=== PATIENT | female | born 1965 | race Caucasian/White ===

== ENCOUNTER → 2016-12-05 | Outpatient (CLI) | payer OTHER | LOC: FIMAGING 07:41 | PROVIDERS: ATTEND Internal Medicine | DX: Z12.31 Encounter for screening mammogram for malignant neoplasm of breast (principal) | CPT/HCPCS: G0202 ==

== ENCOUNTER → 2017-09-28 | Outpatient (CLI) | payer OTHER | LOC: BMCIMAGING 09:17 | PROVIDERS: ATTEND Nurse Practitioner Adult Health | DX: J40 Bronchitis, not specified as acute or chronic (principal) ==

== ENCOUNTER 2017-11-24 16:45 | Emergency (ER) | payer OTHER ==
--- NOTE | 2017-11-24 17:12 | EDPHY ---
H & P Time Seen by Provider: 11/24/17 16:57 HPI/ROS: CHIEF COMPLAINT: Head injury HISTORY OF PRESENT ILLNESS: 52-year-old female presents to the emergency department by private vehicle with head injury. The patient was at a place of business and a large wooden structure fell and hit the top of her head. The incident happened just prior to arrival. She did not lose consciousness. She complains of pain at the site of where she hit. She is also complaining of some neck stiffness. She denies paresthesias in her upper or lower extremities. Denies back pain. Denies chest pain or difficulty breathing. Denies abdominal pain. No vomiting. No visual changes. REVIEW OF SYSTEMS: Constitutional: No fever, no chills. Eyes: No double or blurry vision. ENT: No sore throat. Respiratory: No cough, no shortness of breath. Cardiac: No chest pain. Gastrointestinal: No abdominal pain, vomiting or diarrhea. Genitourinary: No dysuria. Musculoskeletal: Neck pain as above. No back pain. Skin: No rashes. Neurological: headache. Past Medical/Surgical History: Tonsillectomy, orthopedic injury Social History: electrical design engineer Smoking Status: Never smoked Physical Exam: General Appearance: Alert, no distress. Mentating normally and answering questions appropriately. Tender, palpable lump to the crown of the head. No abrasion. No suturable laceration. No evidence of depressed skull fracture. Eyes: Pupils equal and round. Extraocular motions are all intact. ENT: Mouth: Mucous membranes moist. Respiratory: No wheezing, rhonchi, or rales, lungs are clear to auscultation. Cardiovascular: Regular rate and rhythm. Gastrointestinal: Abdomen is soft and nontender, no masses, no rebound or guarding, bowel sounds normal. Neurological: Alert and oriented x 3, cranial nerves II through XII grossly intact Skin: Warm and dry, no rashes. Musculoskeletal: Nontender to palpate along the cervical, thoracic or lumbar spine. Cervical collar kept in place. Extremities: Full range of motion and no peripheral edema. Psychiatric: Patient is oriented X 3, there is no agitation. Constitutional: Initial Vital Signs Temperature (C) 36.6 C 11/24/17 16:51 Heart Rate 89 11/24/17 16:51 Respiratory Rate 16 11/24/17 16:51 Blood Pressure 138/91 H 11/24/17 16:51 O2 Sat (%) 96 11/24/17 16:51 O2 Delivery Mode Room Air Allergies/Adverse Reactions: No Known Allergies Allergy (Unverified 11/24/17 16:51) Home Medications: Medication Instructions Recorded Omeprazole 11/24/17 Medical Decision Making - Diagnostics Imaging Results: Imaging Impressions Cervical Spine CT 11/24/17 17:06 Impression: Negative noncontrast CT of the head with no intracranial posttraumatic sequela identified. CT Cervical Spine Without Contrast History: Trauma. Technique: Multislice helical CT through the cervical spine without contrast from the skull base to T1. Soft tissue and bone evaluation is performed. Sagittal and coronal reconstructions are obtained and reviewed. Dose reduction techniques were utilized. Findings: Cervical alignment is anatomic. No fracture or dislocation is identified. The relationship between skull base and C1 is normal. The C1-C2 articulation is normal. The odontoid process is normal. The cervical thoracic junction is normal. Soft tissue window evaluation does not show evidence of epidural or prevertebral hematoma. Multilevel disk space loss and degenerative changes are seen. Findings are most pronounced at C5-C6 and C6-C7 where there is vertebral body osteophytic lipping and facet and uncovertebral arthropathy. Bilateral neural foraminal impingement is noted at C5-C6 more severe on the right and prominent vertebral body osteophytic lipping at C6-C7 could contribute to an element of spinal canal narrowing. Impression: 1. Negative for fracture. 2. Degenerative changes are noted most pronounced at C5-C6 and C6-C7 as detailed above. Results called and discussed with ENOC MEDINA on 11/24/2017 at 17:[address] 11/24/17 17:06 Impression: Negative noncontrast CT of the head with no intracranial posttraumatic sequela identified. CT Cervical Spine Without Contrast History: Trauma. Technique: Multislice helical CT through the cervical spine without contrast from the skull base to T1. Soft tissue and bone evaluation is performed. Sagittal and coronal reconstructions are obtained and reviewed. Dose reduction techniques were utilized. Findings: Cervical alignment is anatomic. No fracture or dislocation is identified. The relationship between skull base and C1 is normal. The C1-C2 articulation is normal. The odontoid process is normal. The cervical thoracic junction is normal. Soft tissue window evaluation does not show evidence of epidural or prevertebral hematoma. Multilevel disk space loss and degenerative changes are seen. Findings are most pronounced at C5-C6 and C6-C7 where there is vertebral body osteophytic lipping and facet and uncovertebral arthropathy. Bilateral neural foraminal impingement is noted at C5-C6 more severe on the right and prominent vertebral body osteophytic lipping at C6-C7 could contribute to an element of spinal canal narrowing. Impression: 1. Negative for fracture. 2. Degenerative changes are noted most pronounced at C5-C6 and C6-C7 as detailed above. Results called and discussed with ENOC MEDINA on 11/24/2017 at 17:52 Imaging: Discussed imaging studies w/ call or contact centre coach Radiologist, I viewed and interpreted images myself ED Course/Re-evaluation: 52-year-old female presents to the emergency department with head injury and neck pain after something fell on top of her head. I was concerned about possible intracranial bleed and/or skull fracture. I was also concerned about possible cervical spine injury given the low that fell on her head. I recommended CT scan of her head and cervical spine and the patient verbalized understanding and agreed. CT imaging of her head reveals no intracranial bleeding or skull fracture. Cervical spine revealed diffuse degenerative changes without evidence of fracture. Cervical collar was removed by myself and the patient demonstrated full range of motion without pain or difficulty of her neck. Patient was given closed-head injury precautions. She will return if she develops worsening headache, vomiting, altered mental status, or any other concerns. Differential Diagnosis: Head injury including but not limited to concussion, skull fracture, intraparenchymal contusion, subarachnoid, subdural and epidural hematoma. Neck pain including but not limited to muscular pain, herniated disc, spine fracture Departure - Departure Disposition: Home, Routine, Self-Care Clinical Impression: Head injury due to trauma Qualifiers: Encounter type: initial encounter Qualified Code(s): S09.90XA - Unspecified injury of head, initial encounter Cervical strain, acute Qualifiers: Encounter type: initial encounter Qualified Code(s): S16.1XXA - Strain of muscle, fascia and tendon at neck level, initial encounter Condition: Good Instructions: Cervical Strain (ED), Head Injury (ED) Additional Instructions: Avoid any activity that might put you at risk for another head injury for at least 1 week. Ibuprofen 600mg every 8 hours for pain as directed. Return if he developed worsening headache, vomiting, altered mental status, or any other concerns. Referrals: Isabel Pope MD [Primary Care Provider] - 2-3 days, if not improved
[2017-11-24 18:28] VITALS: BP 131/76
== END 2017-11-24 18:26 | disposition home or self-care (01) ==
DX: S09.90XA Unspecified injury of head, initial encounter (principal); S16.1XXA Strain of muscle, fascia and tendon at neck level, initial encounter; W20.8XXA Other cause of strike by thrown, projected or falling object, initial encounter; Y92.69 Other specified industrial and construction area as the place of occurrence of the external cause; Y99.8 Other external cause status; Y93.89 Activity, other specified

== ENCOUNTER → 2017-12-08 | Outpatient (CLI) | payer OTHER | LOC: FIMAGING 09:03 | PROVIDERS: ATTEND Internal Medicine | DX: Z12.31 Encounter for screening mammogram for malignant neoplasm of breast (principal) ==

== ENCOUNTER → 2018-12-15 | Outpatient (CLI) | payer OTHER | LOC: FIMAGING 09:42 ==